=== PATIENT | female | born 1995 | race Caucasian/White ===

== ENCOUNTER → 2018-03-21 | Outpatient (CLI) | payer OTHER ==
[~2018-03-21] MED LIST: ACET500 PO; ACYC800 PO; ALBU90OI; ALBU90OI INH; AMOCLA500 PO; AMOCLA875 PO; BENZ100A PO; BUSP10 PO; Bactrim 400-801 EACH PO; CEPH500 PO; CETI10 PO; CLON.1 PO; CODACE30 PO; CODACEE120 PO; CODGUAEL PO; CRUTCH USE; DIPH12.5EL; DIPH50; DOXY100 PO; ESCI10 PO; ESCI5 PO; HYDACE5; HYDACE5 PO; HYDPAM50 PO; IBUP200; IBUP600 PO; KETO10 PO; Keflex500 MG PO; LOPE2C PO; LORA.5 PO; LORA1 PO; Lice Cream Rin120 ML TP; METERG.2 PO; METO10 PO; MULVITMINE PO; MUPI2TO TOP; Macrobid 100 M100 MG PO; Motrin600 MG PO; NAPR500 PO; NAPR500ERA PO; NAPR550 PO; NEOPOLHCSU AD; NICO2 PO; Naprosyn500 MG PO; OXYACE7.5T PO; PENVK500; PENVK500 PO; PHENA200 PO; PRED10 PO; PRED20 PO; PREN-16 PO; PROC10 PO; PROG100 PO; PROM25 PO; Permethrin60 GM TP; Pyridium100 MG PO; RXCODACET PO; RXCODGUASY PO; RXHYDACE PO; RXLORA1 PO; RXNAPNA550 PO; SULTRIDS PO; TRAM50 PO; TRAZ50 PO; Zofran Odt4 MG SL; Zofran8 MG PO; [UNRECOGNIZED DRUG - REMARK]
== END | disposition home or self-care (01) ==
LOC: LAB SHORT 11:43 → LAB 11:43
DX: Z34.80 Encounter for supervision of other normal pregnancy, unspecified trimester (principal)
CPT/HCPCS: 87081; 87653

== ENCOUNTER 2018-04-15 03:52 | Inpatient (IN) | payer OTHER ==
[~2018-04-15] VITALS: Ht 170.2 cm; Wt 96.0 kg
[2018-04-15] MEDS ORDERED: Verotin-Gr Cap1 EACH PO (08:13)
[2018-04-15 08:58] LABS: BASOPHILS ABSOLUTE AUTO 0.03 K/mm3 (0.00-0.23); BASOPHILS PERCENT AUTO 0 % (0-2); EOSINOPHILS ABSOLUTE AUTO 0.13 K/mm3 (0.00-0.68); EOSINOPHILS PERCENT AUTO 1 % (0-6); Hematocrit 34.1 % (33.0-51.0); Hemoglobin 11.7 g/dL (11.5-16.0); IMMATURE GRAN ABSOLUTE AUTO 0.07 K/mm3 (0.00-0.10); IMMATURE GRAN PERCENT AUTO 1 % (0-1); LYMPHOCYTES ABSOLUTE AUTO 2.82 K/mm3 (0.84-5.20); LYMPHOCYTES PERCENT AUTO 23 % (21-46); MONOCYTES ABSOLUTE AUTO 0.85 K/mm3 (0.16-1.47); MONOCYTES PERCENT AUTO 7 % (4-13); Mean Corpuscular HGB 28.5 pg (26.0-34.0); Mean Corpuscular HGB Conc 34.3 g/dL (31.5-36.5); Mean Corpuscular Volume 83 fL (80-100); Mean Platelet Volume 10.8 fL (9.1-12.4); NEUTROPHILS PERCENT AUTO 69 % (41-73); Platelet Count 231 K/mm3 (150-400); RDW Coefficient Variation 13.4 % (11.7-14.2); RDW Standard Deviation 40.7 fL (35.1-46.3); Red Blood Cell Count 4.11 M/mm3 (3.80-5.20)
[2018-04-15 09:39] LABS: U Amphetamine Screen Not Detected; U Barbituate Screen Not Detected; U Benzodiazapine Screen Not Detected; U Buprenorphine Screen Not Detected; U Cannabinoids Screen DETECTED; U Cocaine Screen Not Detected; U Methadone Screen Not Detected; U Methamphetamine Screen Not Detected; U Opiates Screen Not Detected; U Oxycodone Screen Not Detected; U Phencyclidine Screen Not Detected; U Propoxyphene Screen Not Detected
[2018-04-16 05:49] LABS: Hematocrit 30.7 % (33.0-51.0); Hemoglobin 10.7 g/dL (11.5-16.0); Mean Corpuscular HGB 28.8 pg (26.0-34.0); Mean Corpuscular HGB Conc 34.9 g/dL (31.5-36.5); Mean Corpuscular Volume 83 fL (80-100); Mean Platelet Volume 10.9 fL (9.1-12.4); Platelet Count 206 K/mm3 (150-400); RDW Coefficient Variation 13.2 % (11.7-14.2); RDW Standard Deviation 39.8 fL (35.1-46.3); Red Blood Cell Count 3.72 M/mm3 (3.80-5.20); White Blood Cell Count 16.52 K/mm3 (4.00-11.30)
[2018-04-17] MEDS ORDERED: IBUP800 (10:46)
== END 2018-04-17 15:15 | disposition home or self-care (01) | DRG 775 ==
LOC: BC 03:52
PROVIDERS: Obstetrics & Gynecology
PROC: 10E0XZZ Delivery of Products of Conception, External Approach (ICD-10-PCS; principal; 2018-04-15)
PROC: 3E0234Z Introduction of Serum, Toxoid and Vaccine into Muscle, Percutaneous Approach (ICD-10-PCS; 2018-04-15)
PROC: 3E0134Z Introduction of Serum, Toxoid and Vaccine into Subcutaneous Tissue, Percutaneous Approach (ICD-10-PCS; 2018-04-15)
PROC: 10907ZC Drainage of Amniotic Fluid, Therapeutic from Products of Conception, Via Natural or Artificial Opening (ICD-10-PCS; 2018-04-15)
PROC: 3E0S3BZ Introduction of Anesthetic Agent into Epidural Space, Percutaneous Approach (ICD-10-PCS; 2018-04-15)
DX: O99.824 Streptococcus B carrier state complicating childbirth (principal); Z37.0 Single live birth; Z3A.39 39 weeks gestation of pregnancy; Z23 Encounter for immunization; O71.82 Other specified trauma to perineum and vulva; O99.324 Drug use complicating childbirth; F12.90 Cannabis use, unspecified, uncomplicated
CPT/HCPCS: 36415; 51702; 85025; 85027; 87081; 90707; J0290; J1885; J2210; J2590; J3010; J7120

== ENCOUNTER → 2019-09-22 | Outpatient (CLI) | payer OTHER ==
[~2019-09-22] MED LIST changes: +DOCU100; +IBUP800; +IBUP800 PO; +Percocet 5-3251 EACH PO; +Verotin-Gr Cap1 EACH PO
[2019-09-25 23:06] LABS: CHLAMYDIA BY NAA Negative (Negative); GONOCOCCUS BY NAA Negative (Negative); TRICH VAG BY NAA Positive (Negative)
== END | disposition home or self-care (01) ==
LOC: LAB 15:00 → LAB SHORT 15:00
PROVIDERS: Advanced Practice Midwife
DX: Z33.1 Pregnant state, incidental (principal)
CPT/HCPCS: 87081; 87491; 87591; 87653; 87661

== ENCOUNTER 2019-10-14 05:05 | Inpatient (IN) | payer OTHER ==
[~2019-10-14] VITALS: Ht 170.2 cm; Wt 96.8 kg
[~2019-10-14 05:05] MED LIST changes: -DOCU100; -IBUP800 PO; -Percocet 5-3251 EACH PO
[2019-10-14 05:41] LABS: BASOPHILS ABSOLUTE AUTO 0.03 K/mm3 (0.00-0.23); BASOPHILS PERCENT AUTO 0 % (0-2); EOSINOPHILS ABSOLUTE AUTO 0.15 K/mm3 (0.00-0.68); EOSINOPHILS PERCENT AUTO 1 % (0-6); Hematocrit 34.8 % (33.0-51.0); Hemoglobin 11.9 g/dL (11.5-16.0); IMMATURE GRAN ABSOLUTE AUTO 0.16 K/mm3 (0.00-0.10); IMMATURE GRAN PERCENT AUTO 1 % (0-1); LYMPHOCYTES ABSOLUTE AUTO 2.68 K/mm3 (0.84-5.20); LYMPHOCYTES PERCENT AUTO 21 % (21-46); MONOCYTES ABSOLUTE AUTO 0.77 K/mm3 (0.16-1.47); MONOCYTES PERCENT AUTO 6 % (4-13); Mean Corpuscular HGB 28.1 pg (26.0-34.0); Mean Corpuscular HGB Conc 34.2 g/dL (31.5-36.5); Mean Corpuscular Volume 82 fL (80-100); Mean Platelet Volume 10.8 fL (9.1-12.4); NEUTROPHILS ABSOLUTE AUTO 8.84 K/mm3 (1.96-9.15); NEUTROPHILS PERCENT AUTO 70 % (41-73); Platelet Count 188 K/mm3 (150-400); RDW Coefficient Variation 13.4 % (11.7-14.2); RDW Standard Deviation 39.6 fL (35.1-46.3); Red Blood Cell Count 4.24 M/mm3 (3.80-5.20); White Blood Cell Count 12.63 K/mm3 (4.00-11.30)
[2019-10-14 06:11] LABS: U Amphetamine Screen Not Detected; U Barbituate Screen Not Detected; U Benzodiazapine Screen Not Detected; U Buprenorphine Screen Not Detected; U Cannabinoids Screen DETECTED; U Cocaine Screen Not Detected; U Methadone Screen Not Detected; U Methamphetamine Screen Not Detected; U Opiates Screen Not Detected; U Oxycodone Screen Not Detected; U Phencyclidine Screen Not Detected; U Propoxyphene Screen Not Detected
--- NOTE | 2019-10-14 22:11 | NUR ---
PROVIDED PATIENT WITH HEATED PAD TO HELP WITH CRAMPING
--- NOTE | 2019-10-15 01:15 | NUR ---
PATIENT IN ROOM CRYING AT THIS TIME. STATES THAT HER MOTHER STOLE GU AND FOOD STAMP CARD FROM HER WALLET WHILE VISITING HER ROOM. OFFERED PATIENT TO SET UP A PASSWORD, PATIENT DECLINED STATING THAT HER MOM WILL NOT BE RETURNING BECAUSE SHE CALLED THE BILL COLLECTOR ON HER.
[2019-10-15 06:11] LABS: Hemoglobin 10.2 g/dL (11.5-16.0); Mean Corpuscular HGB 27.9 pg (26.0-34.0); Mean Corpuscular Volume 82 fL (80-100); Mean Platelet Volume 10.8 fL (9.1-12.4); Platelet Count 174 K/mm3 (150-400); RDW Coefficient Variation 13.3 % (11.7-14.2); RDW Standard Deviation 39.8 fL (35.1-46.3); Red Blood Cell Count 3.65 M/mm3 (3.80-5.20); White Blood Cell Count 13.42 K/mm3 (4.00-11.30)
--- NOTE | 2019-10-15 12:33 | NUR ---
ASSIST BABY WELL SHE DENIES FEEDING PROBLEMS AT THIS TIME. MOM IS AN EXPERIENCED MOM. SHE DID HAV QUESTIONS AND CONCERNS ABOUT PUMPING AND REPROTED THAT SHE WAS UNSUCCESSFUL WITH PUMPING LAST. TIME. HAND OHT FREEMAN ON EDUCATION RESOURCES AND HANDS ON PUMPING WEB SITE.
[2019-10-15] MEDS ORDERED: IBUP800 PO (15:00)
[2019-10-15] MEDS ORDERED: Percocet 5-3251 EACH PO (15:01)
[2019-10-15] MEDS ORDERED: DOCU100 (15:01)
--- NOTE | 2019-10-15 16:38 | NUR ---
DISCHARGE INSRUCTIONS REVIEWED AND SIGNED. ALL QUESTIONS ANSWERED. BANDS MATCHED
== END 2019-10-15 16:40 | disposition home or self-care (01) | DRG 807 ==
LOC: BC 05:05
PROVIDERS: Obstetrics & Gynecology; ADMIT Advanced Practice Midwife
PROC: 10E0XZZ Delivery of Products of Conception, External Approach (ICD-10-PCS; principal; 2019-10-14)
PROC: 3E033VJ Introduction of Other Hormone into Peripheral Vein, Percutaneous Approach (ICD-10-PCS; 2019-10-14)
PROC: 10907ZC Drainage of Amniotic Fluid, Therapeutic from Products of Conception, Via Natural or Artificial Opening (ICD-10-PCS; 2019-10-14)
PROC: 3E0R3BZ Introduction of Anesthetic Agent into Spinal Canal, Percutaneous Approach (ICD-10-PCS; 2019-10-14)
DX: O99.824 Streptococcus B carrier state complicating childbirth (principal); Z37.0 Single live birth; O99.334 Smoking (tobacco) complicating childbirth; F17.200 Nicotine dependence, unspecified, uncomplicated; Z3A.39 39 weeks gestation of pregnancy; Z91.013 Allergy to seafood
CPT/HCPCS: 36415; 51702; 85025; 85027; A9270; J0290; J1885; J2001; J2210; J2590; J3010; J7120

== ENCOUNTER 2021-10-01 08:37 | Emergency (ER) | payer OTHER ==
[~2021-10-01] VITALS: Ht 170.2 cm; Wt 0.5 kg
[~2021-10-01 08:37] MED LIST changes: +DOCU100; +IBUP800 PO; +ONE A DAY PREN1 EACH PO; +Percocet 5-3251 EACH PO
== END 2021-10-01 09:19 | disposition home or self-care (01) ==
LOC: ER 08:37
DX: O20.9 Hemorrhage in early pregnancy, unspecified (principal); Z3A.17 17 weeks gestation of pregnancy; Z53.21 Procedure and treatment not carried out due to patient leaving prior to being seen by health care provider
CPT/HCPCS: 99283

== ENCOUNTER 2021-10-02 01:34 | Emergency (ER) | payer OTHER ==
[~2021-10-02] VITALS: Ht 170.2 cm; Wt 81.7 kg
[2021-10-02 02:26] LABS: BASOPHILS ABSOLUTE AUTO 0.04 K/mm3 (0.00-0.23); BASOPHILS PERCENT AUTO 1 % (0-2); EOSINOPHILS PERCENT AUTO 1 % (0-6); Hematocrit 36.1 % (33.0-51.0); Hemoglobin 12.2 g/dL (11.5-16.0); IMMATURE GRAN ABSOLUTE AUTO 0.02 K/mm3 (0.00-0.10); IMMATURE GRAN PERCENT AUTO 0 % (0-1); LYMPHOCYTES ABSOLUTE AUTO 2.28 K/mm3 (0.84-5.20); LYMPHOCYTES PERCENT AUTO 29 % (21-46); MONOCYTES ABSOLUTE AUTO 0.51 K/mm3 (0.16-1.47); MONOCYTES PERCENT AUTO 7 % (4-13); Mean Corpuscular HGB 27.8 pg (26.0-34.0); Mean Corpuscular HGB Conc 33.8 g/dL (31.5-36.5); Mean Corpuscular Volume 82 fL (80-100); NEUTROPHILS ABSOLUTE AUTO 4.95 K/mm3 (1.96-9.15); NEUTROPHILS PERCENT AUTO 63 % (41-73); RDW Coefficient Variation 13.2 % (11.7-14.2); RDW Standard Deviation 39.4 fL (35.1-46.3); Red Blood Cell Count 4.39 M/mm3 (3.80-5.20)
[2021-10-02 02:29] LABS: Mean Platelet Volume 10.3 fL (9.1-12.4); Platelet Count 265 K/mm3 (150-400)
[2021-10-02 03:27] LABS: Alanine Aminotransfer (ALT/SGP 24 U/L (12-78); Albumin, Blood 3.5 g/dL (3.4-5.0); Alk Phos 38 U/L (50-136); Anion Gap 8 mmol/L (6-16); Aspartate Aminotrans (AST/SGOT 39 U/L (12-37); Bilirubin, Total 0.4 mg/dL (0.1-1.0); Blood Urea Nitrogen 9 mg/dL (8-24); Bun/Creatinine Ratio 16.5 (12.0-20.0); CO2, Blood 23 mmol/L (21-32); Chloride, Blood 108 mmol/L (98-108); Creatinine, Blood 0.55 mg/dL (0.40-1.00); Globulin, Blood 3.4 g/dL (2.2-4.0); Glomerular Filtration Rate >60 (60-); Glucose, Blood 86 mg/dL (70-99); Potassium, Blood 4.4 mmol/L (3.5-5.5); Sodium, Blood 139 mmol/L (136-145); Total Protein, Blood 6.9 g/dL (6.4-8.2)
[2021-10-02 03:45] LABS: Beta HCG, Quantitative, Serum 6628 mIU/mL (0-3)
== END 2021-10-02 05:52 | disposition home or self-care (01) ==
LOC: ER 01:34
PROVIDERS: Student in an Organized Health Care Education/Training Program
DX: O03.4 Incomplete spontaneous abortion without complication (principal); Z91.013 Allergy to seafood; Z87.891 Personal history of nicotine dependence; Z3A.17 17 weeks gestation of pregnancy
CPT/HCPCS: 36415; 76815; 80053; 84702; 85025; 86900; 86901; 99284-25

== ENCOUNTER 2021-10-06 14:22 | Observation (INO) | payer OTHER ==
[~2021-10-06] VITALS: Ht 170.2 cm; Wt 88.0 kg
[2021-10-06 15:03] LABS: BASOPHILS ABSOLUTE AUTO 0.04 K/mm3 (0.00-0.23); BASOPHILS PERCENT AUTO 0 % (0-2); EOSINOPHILS ABSOLUTE AUTO 0.11 K/mm3 (0.00-0.68); EOSINOPHILS PERCENT AUTO 1 % (0-6); Hematocrit 36.1 % (33.0-51.0); Hemoglobin 12.2 g/dL (11.5-16.0); IMMATURE GRAN ABSOLUTE AUTO 0.06 K/mm3 (0.00-0.10); IMMATURE GRAN PERCENT AUTO 1 % (0-1); LYMPHOCYTES ABSOLUTE AUTO 1.86 K/mm3 (0.84-5.20); LYMPHOCYTES PERCENT AUTO 19 % (21-46); MONOCYTES ABSOLUTE AUTO 0.47 K/mm3 (0.16-1.47); MONOCYTES PERCENT AUTO 5 % (4-13); Mean Corpuscular HGB 27.9 pg (26.0-34.0); Mean Corpuscular HGB Conc 33.8 g/dL (31.5-36.5); Mean Corpuscular Volume 82 fL (80-100); NEUTROPHILS ABSOLUTE AUTO 7.32 K/mm3 (1.96-9.15); NEUTROPHILS PERCENT AUTO 74 % (41-73); Platelet Count 340 K/mm3 (150-400); RDW Standard Deviation 39.3 fL (35.1-46.3); Red Blood Cell Count 4.38 M/mm3 (3.80-5.20); White Blood Cell Count 9.86 K/mm3 (4.00-11.30)
[2021-10-06 15:39] LABS: Alanine Aminotransfer (ALT/SGP 22 U/L (12-78); Albumin, Blood 3.2 g/dL (3.4-5.0); Albumin/Globulin Ratio 0.9 (0.8-1.8); Alk Phos 43 U/L (50-136); Anion Gap 7 mmol/L (6-16); Aspartate Aminotrans (AST/SGOT 16 U/L (12-37); Bilirubin, Total 0.3 mg/dL (0.1-1.0); Blood Urea Nitrogen 9 mg/dL (8-24); Bun/Creatinine Ratio 15.1 (12.0-20.0); CO2, Blood 25 mmol/L (21-32); Calcium, Blood 8.9 mg/dL (8.5-10.1); Chloride, Blood 108 mmol/L (98-108); Globulin, Blood 3.6 g/dL (2.2-4.0); Glomerular Filtration Rate >60 (60-); Glucose, Blood 117 mg/dL (70-99); Potassium, Blood 3.9 mmol/L (3.5-5.5); Sodium, Blood 140 mmol/L (136-145); Total Protein, Blood 6.8 g/dL (6.4-8.2)
[2021-10-06 15:40] LABS: Beta HCG, Quantitative, Serum 4220 mIU/mL (0-3)
[2021-10-06] MEDS ORDERED: ACET500 PO (17:36)
[2021-10-06 19:49] LABS: Influenza A, PCR NEGATIVE (NEGATIVE); Influenza B, PCR NEGATIVE (NEGATIVE); Resp Syncytial Virus, PCR NEGATIVE (NEGATIVE); SARS-Cov-2 (COVID-19) PCR, MMC NEGATIVE (NEGATIVE)
--- NOTE | 2021-10-06 21:30 | NUR ---
ARRIVAL/ AMA DISCHARGE NOTE PT ARRIVED TO 221 FROM THE ED. PT A/0X4, VSS. BELONGINGS AT BEDSIDE. 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 PT REQUESTED TO LEAVE AMA. RISKS AND BENEFITS EXPLAINED TO PATIENT AT THIS TIME. AMA SIGNED BY PATIENT, RN AND RETAIL RECEIVING CLERK Elliot BRADLEY. IV REMOVED AND PATIENT LEFT UNIT AT THIS TIME.
--- NOTE | 2021-10-06 21:40 | NUR ---
DR. DE MADE AWARE OF PATIENT LEAVING AMA AT THIS TIME.
== END 2021-10-06 21:35 | disposition left against medical advice (07) ==
LOC: ER 14:22 → SURS 14:23
PROVIDERS: Emergency Medicine; ADMIT Obstetrics & Gynecology
DX: O03.6 Delayed or excessive hemorrhage following complete or unspecified spontaneous abortion (principal); O99.331 Smoking (tobacco) complicating pregnancy, first trimester; Z3A.10 10 weeks gestation of pregnancy; Z91.013 Allergy to seafood; Z79.899 Other long term (current) drug therapy; Z87.891 Personal history of nicotine dependence; Z20.822 Contact with and (suspected) exposure to COVID-19
CPT/HCPCS: 0241U; 36415; 76815; 80053; 84702; 85025; 86850; 86900; 86901; 96374; 96375; 96376; 99285-25; A9270; J2270; J2405; J7030

== ENCOUNTER 2022-11-10 15:30 | Inpatient (IN) | payer OTHER ==
[~2022-11-10] VITALS: Ht 170.2 cm; Wt 90.5 kg
[2022-11-10 15:57] LABS: BASOPHILS ABSOLUTE AUTO 0.05 K/mm3 (0.00-0.23); BASOPHILS PERCENT AUTO 1 % (0-2); EOSINOPHILS ABSOLUTE AUTO 0.07 K/mm3 (0.00-0.68); EOSINOPHILS PERCENT AUTO 1 % (0-6); Hematocrit 37.6 % (33.0-51.0); Hemoglobin 13.1 g/dL (11.5-16.0); IMMATURE GRAN ABSOLUTE AUTO 0.03 K/mm3 (0.00-0.10); IMMATURE GRAN PERCENT AUTO 0 % (0-1); LYMPHOCYTES ABSOLUTE AUTO 3.06 K/mm3 (0.84-5.20); LYMPHOCYTES PERCENT AUTO 30 % (21-46); MONOCYTES ABSOLUTE AUTO 0.66 K/mm3 (0.16-1.47); MONOCYTES PERCENT AUTO 6 % (4-13); Mean Corpuscular HGB 27.5 pg (26.0-34.0); Mean Corpuscular HGB Conc 34.8 g/dL (31.5-36.5); Mean Corpuscular Volume 79 fL (80-100); Mean Platelet Volume 10.1 fL (9.1-12.4); NEUTROPHILS ABSOLUTE AUTO 6.43 K/mm3 (1.96-9.15); NEUTROPHILS PERCENT AUTO 62 % (41-73); Platelet Count 315 K/mm3 (150-400); RDW Coefficient Variation 13.3 % (11.7-14.2); RDW Standard Deviation 38.1 fL (35.1-46.3); Red Blood Cell Count 4.76 M/mm3 (3.80-5.20)
[2022-11-10 16:16] LABS: Source, Urine Foley catheter
[2022-11-10 16:22] LABS: Base Excess Venous 0.6 mmol/L; Bicarbonate Venous 24.3 mmol/L (24.0-30.0); pH Blood Venous 7.37 (7.34-7.37)
[2022-11-10 16:42] LABS: Albumin, Blood 3.6 g/dL (3.4-5.0); Albumin/Globulin Ratio 1.1 (0.8-1.8); Bilirubin, Total 0.3 mg/dL (0.1-1.0); Bun/Creatinine Ratio 13.1 (12.0-20.0); Calcium, Blood 8.8 mg/dL (8.5-10.1); Creatinine, Blood 0.69 mg/dL (0.40-1.00); Globulin, Blood 3.2 g/dL (2.2-4.0); Potassium, Blood 3.4 mmol/L (3.5-5.5); Total Protein, Blood 6.8 g/dL (6.4-8.2)
[2022-11-10 17:15] LABS: Appearance, Urine Clear (Clear); Bilirubin, Urine Neg (Neg); Blood, Urine Neg (Neg); Color, Urine Yellow (P-Yellow); Glucose Qualitative, Urine Neg (Neg); Ketones, Urine Neg (Neg); Leukocyte Esterase, Urine Neg (Neg); Nitrite, Urine Neg (Neg); Protein, Urine 2+ (Neg); Specific Gravity, Urine 1.025 (1.003-1.022); Urobilinogen, Urine NORM (Normal)
[2022-11-10 17:24] LABS: Bacteria Few /hpf; Calcium Oxalate Crystals Rare /hpf; Mucus Light (0-Heavy); Squamous Epithelial Cells Few /hpf (Few); Transitional Epithelial Cells Rare /hpf (0-Rare); White Blood Cells, Urine 0-2 /hpf (0-5)
[2022-11-10 17:26] LABS: U Amphetamine Screen Not Detected; U Barbituate Screen Not Detected; U Benzodiazapine Screen Not Detected; U Buprenorphine Screen Not Detected; U Cannabinoids Screen DETECTED; U Cocaine Screen Not Detected; U Methadone Screen Not Detected; U Methamphetamine Screen DETECTED; U Opiates Screen Not Detected; U Oxycodone Screen Not Detected; U Phencyclidine Screen Not Detected; U Propoxyphene Screen Not Detected
--- NOTE | 2022-11-10 18:28 | NUR ---
ARRIVAL TO ICU PT ARRIVES TO ICU AT 1800 FOR INHALATION INJURY. REPORT FROM LARON AUGUST. PER REPORT, PT WAS SMOKING MARIJUANA WHEN A PROPANE BLOCK SPLITTER OPERATOR BLEW UP IN HER FACE. APPROX 1 HOUR BEFORE EMS WAS ON SCENE. PT REPORTED THROAT TIGHTNESS AND WAS INTUBATED. PT ARRIVES INTUBATED AND SEDATED. 7.0 ETT, 24 AT TEETH. VENT SETTINGS AC/VC 16/450/5/40%. ON ARRIVAL, PT THRASHING IN BED, PULLING AT RESTRAINTS. PROPOFOL AND KETAMINE GTT INCREASED. PT RESTING CALMLY AT THIS TIME. LUNGS CLEAR. BALJEET RED BLOOD FROM ETT. EYEBROWS, LASHES AND FRONT OF SCALP HAIR BURNT. REDNESS NOTED TO CHIN, AND HANDS BILATERALLY, WORSE ON RIGHT HAND. SR, RATE 70'S. BP STABLE. OGT TO LIS. WILL CONTINUE TO MONITOR UNTIL REPORT TO ONCOMING NURSE.
--- NOTE | 2022-11-10 20:00 | NUR ---
ASSUMED CARE OF PT AT 1915. REPORT RECEIVED AT BEDSIDE. PT PRESENTS IN BED. INTUBATED. PT HAS POOR TOLERANCE OF VENT. KETAMINE AT 0.3 MG/KG PROPOFOL AT 40 MCG'S/KG. SPOKE WITH DR VILLAR ABOUT SAFE SEDATION WITH PT BEING . PRECEDEX AND KETAMINE PREFERABLE VERSUS PROPOFOL. WILL TITRATE PROPOFOL TO OFF. WILL USE PRECEDEX NEEDED TO PROVIDE VENT TOLERANCE. WILL REVIEW CHART AND PLAN OF CARE FOR THIS PT.
--- NOTE | 2022-11-11 00:30 | NUR ---
PT HAS BEEN QUITE ACTIVE THIS NIGHT EVEN WITH PRECEDEX AND KETAMINE INFUSING. PT HAS BEEN MEDICATED WITH PRN ATIVAN. PT MAKES EFFORTS TO TRY AND GET TO HER ETT TO PULL. IS NOT REDIRECTABLE. DOES RESPOND TO ATIVAN.
[2022-11-11 04:59] LABS: BASOPHILS ABSOLUTE AUTO 0.03 K/mm3 (0.00-0.23); BASOPHILS PERCENT AUTO 0 % (0-2); EOSINOPHILS ABSOLUTE AUTO 0.01 K/mm3 (0.00-0.68); EOSINOPHILS PERCENT AUTO 0 % (0-6); Hemoglobin 10.2 g/dL (11.5-16.0); IMMATURE GRAN ABSOLUTE AUTO 0.04 K/mm3 (0.00-0.10); IMMATURE GRAN PERCENT AUTO 0 % (0-1); LYMPHOCYTES ABSOLUTE AUTO 1.84 K/mm3 (0.84-5.20); LYMPHOCYTES PERCENT AUTO 14 % (21-46); MONOCYTES ABSOLUTE AUTO 0.74 K/mm3 (0.16-1.47); MONOCYTES PERCENT AUTO 6 % (4-13); Mean Corpuscular HGB Conc 35.2 g/dL (31.5-36.5); Mean Corpuscular Volume 80 fL (80-100); Mean Platelet Volume 10.3 fL (9.1-12.4); NEUTROPHILS ABSOLUTE AUTO 10.09 K/mm3 (1.96-9.15); NEUTROPHILS PERCENT AUTO 79 % (41-73); Platelet Count 250 K/mm3 (150-400); RDW Coefficient Variation 13.6 % (11.7-14.2); RDW Standard Deviation 39.3 fL (35.1-46.3); Red Blood Cell Count 3.64 M/mm3 (3.80-5.20); White Blood Cell Count 12.75 K/mm3 (4.00-11.30)
--- NOTE | 2022-11-11 05:16 | NUR ---
PT AWAKENS EASILY EVEN WITH KETAMINE 0.5 MG. AND PRECEDEX AT 0.7 MCG'S. OF NOTE: PT WAS ABLE TO GET HER HAND OUT OF WRIST RESTRAINT ON LEFT WHILE THIS RN WAS AT THE DOOR. IMMEDIATELY SHE WENT TO GRAB AT HER ETT. WAS ABLE TO GET TO PT BEFORE SHE SELF EXTUBATED HERSELF. HAVE MEDICATED PT WITH 2 MG ATIVAN. PT CURRENTLY SLEEPING.
[2022-11-11 05:28] LABS: Bun/Creatinine Ratio 11.6 (12.0-20.0); Calcium, Blood 7.6 mg/dL (8.5-10.1); Creatinine, Blood 0.6 mg/dL (0.40-1.00)
--- NOTE | 2022-11-11 08:22 | NUR ---
CALL FOR WELLNESS CHECK: PT HAS NOT HAD ANYBODY CHECK ON HER SINCE ARRIVAL TO THE HOSPITAL, CALLS TO "FRIEND" LISTED ON FACESHEET GO STRAIGHT TO VOICEMAIL WITH NO RETURN CALL. LOOK THROUGH PRIOR RECORDS WITH NO OTHER CONTACTS ABLE TO BE IDENTIFIED. PT KNOWN TO HAVE CHILDREN, UNCLEAR OF THEIR WHEREABOUTS, THUS CALL TO [facility] TO HAVE SOMEONE CHECK ON PT'S LAST KNOWN ADDRESS/ATTEMPT TO LOCATE FAMILY/CHILDREN FOR THIS PT. THEY STATE AN OFFICER WILL ATTEMPT TO CONTACT AT LAST KNOWN ADDRESS AND WILL CALL BACK WITH STATUS UPDATE.
--- NOTE | 2022-11-11 08:30 | NUR ---
ASSUMED CARE REPORT FROM TRAE AUGUST AT 0700. PT INTUBATED AND SEDATED. VENT SETTINGS SPONT 7/5/30%. TV 400-500MLS. LUNGS CLEAR. SMALL AMOUNT OF THIN CLEAR SECRETIONS FROM ETT. KETAMINE AND PRECEDEX GTT INFUSING FOR SEDATION. PT EITHER VERY SEDATED OR VERY AGITATED. SITTING UP IN BED, PULLING ON RESTRAINTS. UNABLE TO REDIRECT. MAEW. DOES NOT FOLLOW COMMANDS. COUGH/GAG/SWALLOW REFLEX PRESENT. PRN ATIVAN GIVEN. SR, RATE 60-70'S. BP STABLE. KCL BEING REPLACED. ABD ROUND, SOFT, NON TENDER. BT X 4. OGT TO LISLivia SHARPEEY PATENT, DRAINING CLOUDY ALEX URINE TO GRAVITY. PIV X 2. WILL CONTINUE TO MONITOR.
--- NOTE | 2022-11-11 10:35 | NUR ---
WELFARE UPDATE: RECEIVED CALL BACK FROM PLACEMENT SECRETARY YUE WHO WAS ABLE TO MAKE CONTACT WITH PT'S MOTHER, BELIEVES HER NAME IS MIKEY. PT'S MOTHER STATES SHE HAS 1 OF PT'S CHILDREN LIVING WITH HER AND THAT THE OTHER 4 CHILDREN HAD BEEN ADOPTED. OBTAINED CONTACT PHONE NUMBER [phone] FOR MOTHER.
--- NOTE | 2022-11-11 11:00 | NUR ---
Pt resting in bed and is intubated. No S/S of distress at this time. Spoke with farm machinery mechanic Chela, Primary RN Kym, and discussed case. Potential need for assistance with locating NOK. Chela has call out to [facility] with assistance for locating family. Reviewed plan of care. Attempted to call friend Benjamin listed as contact. Left message on CME with request for return phone call. Called phone number that is listed for Pt and is disconnected or no longer in service. Palliative Care will remain available
--- NOTE | 2022-11-11 14:54 | NUR ---
BRONCHOSCOPY/EXTUBATION DR MELGOZA AND RT AT BEDSIDE FOR BRONCH. PROPOFOL AND SUCCINYLCHOLINE GIVEN. BRONCH COMPLETED. NO ABNOMALITIES NOTED. OK TO PROCEED c EXTUBATION PER DR MELGOZA. PRECEDEX AND KETAMINE PLACED ON STANDBY. PT ABLE TO FOLLOW SIMPLE COMMANDS. STRONG COUGH. EXTUBATED AT 1239. RESTRAINTS REMOVED. >97% ON RA. FAMILY AT BEDSIDE. WILL CONTINUE TO MONITOR.
--- NOTE | 2022-11-11 17:46 | NUR ---
SHIFT SUMMARY/TRANSFER TO MEDICAL FLOOR PT EXTUBATED THIS SHIFT, SEE PREVIOUS NOTE. LUNGS CLEAR, PT ON RA, O2 SATS >97%. PRODUCTIVE COUGH, ABLE TO MANAGE SECRETIONS. PASSED BEDSIDE SWALLOW, ADVANCED DIET TOLERATED. PT SOMULENT BUT WAKES c VERBAL STIMULI. OCCASIONALLY IRRITABLE c CARE. MOTHER ABLE TO REDIRECT. ANSWERS QUESTIONS APPROPRIATELY WHEN AWAKE. LIMITED RECOLLECTION OF EVENTS. DANYA REMOVED THIS SHIFT. UP TO SHOWER IN CHAIR. REPORT TO LESTER AUGUST. ALL BELONGINGS SENT c PT.
--- NOTE | 2022-11-11 18:35 | NUR ---
SHIFT SUMMARY- PT ALERT AND ORIENTED TO SELF, VERY FORGETFUL AND SEEMS TO BE GETTING MORE AGGITATED IT GETS LATER IN THE DAY. PT HAS Hx ETOH AND IS HAVING CIWAS DONE. SHE WAS MEDICATED PRIOR TO ARRIVAL ON MEDICAL FLOOR WITH PO LIBRIUM. PT CURRENTLY IN BED. SHE CALLS FREQUENTLY FOR NO APPARENT REASON, STAFF RESPOND AND SHE STATES SHE DOES NOT NEED ANYTHING, STAFF OFFER TO TAKE HER TO THE RESTROOM ANND SHE DECLINES, THEN WILL SET OFF THE BED ALARM WITHIN 2 MINUTES. PT HAS BECOME ANGRY WITH THE ALARM THIS EVENING, WHEN IT WAS EXPLAINED WHAT THE ALARM IS FOR SHE CALMED. PT IN BED, CALL LIGHT IN REACH ON TELE NSR IN THE 60'S ON ARRIVAL TO MED FLOOR THIS EVENING. NO CURRENT S&S OF DISTRESS OTED, WILL CTM AND PASS ON TO NIGHT RN IN REPORT.
--- NOTE | 2022-11-11 18:42 | NUR ---
SHIFT SUMMARY- PT ALERT TO SELF. VITALS COMPLETED WHEN PT WAS TRANSFERED FROM ICU TO MEDICAL FLOOR. PT TEMP ELEVATED 100.0. PER REPORT FROM CORPORATE TECHNICAL RECRUITER THE PT REFUSED OFFERED TYLENOL IN ICU. PT AGREED TO TAKE IT HERE, ONCE IT WAS PULLED THE PT WAS ASLEEP AND UNWILLING OR ABLE TO WAKE ENOUGH TO TAKE THE MEDICATION. PER REPORT FROM CORPORATE TECHNICAL RECRUITER THE PT ATE A REGULAR MEAL TRAY PRIOR TO ARRIVING ON MEDICAL FLOOR. PT CURRENTLY IN BED, CALL LIGHT IN REACH NO S&S OF DISTRESS. PT SLEEPING BED ALARM FOR SAFETY PT IS STILL VERY GROGGY. PT IS 5 WEEKS & 5 DAYS GESTATION. PLAN IS TO DC HOME WHEN MEDICALLY STABLE.
--- NOTE | 2022-11-12 02:49 | NUR ---
A/Ox4; LETHARGIC, SLOW TO RESPOND, AND COOPERATIVE. OOB MOBILITY NOT TESTED YET BY THIS RN; WITH A LOT OF CUES, PATIENT WAS ABLE TO TURN /LIFT HIPS IN BED. INC AND PLACED IN ATTENDS. C/O PAIN; PATIENT INITIALLY REFUSING TYLENOL. MOTHER OF PATIENT AT BEDSIDE - REQUESTED RN CALL DOCTOR, THIS RN PROMOTED TYLENOL, ADMINISTERED IT (WITH DIFFICULTY PATIENT WAS SO DROWSY THAT IT TOOK MULTIPLE ATTEMPTS), AND THEN CALLED THE DOCTOR (PRIOR TO MIDNIGHT) TO RELAY THE REQUEST FOR MORE PAIN MEDICATION. UPON RETURN TO PATIENT'S ROOM, PATIENT WAS ASLEEP AND THIS RN INFORMED FAMILY THAT NO NEW ORDERS WERE GIVEN AT THIS TIME. THIS RN THEN REACHED OUT TO THE PHARMACIST TO FIND OUT IF THERE IS A TOPICAL BURN CREAM AVAILABLE. PHARMACY CALLED BACK TO SAY THAT THEY HAD OBTAINED AN ORDER FOR FENTYNAL (4 DOSES) FROM THE SECOND NIGHT HOSPITALIST (AFTER MIDNIGHT). FENTYNAL NOT GIVEN YET D/T PATIENT LETHARGY AND NO NON-VERBAL S/S PAIN PRESENT. PATIENT HAS NOT VERBALIZED PAIN SINCE PRIOR TO ADMIN OF PRN TYLENOL AND APPEARS TO BE SLEEPING COMFORTABLY AT THIS TIME. THIS RN WILL CONTINUE TO REASSESS PATIENT'S PAIN AND NEUROLOGICAL STATUS THROUGHOUT SHIFT. FLUIDS ENCOURAGED. SLEEP PROMOTED. BED ALARM SET. CALL LIGHT IN REACH; ENCOURAGED TO MAKE NEEDS KNOWN.
--- NOTE | 2022-11-12 08:15 | NUR ---
CALLED DR COSTELLO- PT C/O PAIN IN THE AREA OF THE NELSON. ASKED ABOUT THE USE OF SILVADENE CREAM, HOWEVER THIS CAN NOT BE USED ON THE PT FACE (PER DR COSTELLO). RECIEVED ORDER FOR BACITRACIN TO APPLY TO THE AREA OF THE NELSON. PLAN IS TO DC THE PT HOME TODAY.
[2022-11-12] MEDS ORDERED: BACITO TOP (11:29)
--- NOTE | 2022-11-12 12:52 | NUR ---
DISCHARGE NOTE- PT WAS GIVEN VERBAL AND WRITTEN DISCHARGE INSTRUCTIONS AND ACKNOWLEDGED UNDERSTANDING OF THEM. BOTH IV'S WERE DC'D PRIOR TO DISCHAGRE, PT ATE LUNCH PRIOR TO LEAVING. PT WAS ESCORTED OUT VIA NO S&S OF DISTRESS AT THE TIME OF DISCHARGE.
== END 2022-11-12 12:13 | disposition home or self-care (01) | DRG 831 ==
LOC: ER 15:30 → ICUW 17:51 → ICUE 17:51 → MEDS 11-11 18:06
PROVIDERS: Emergency Medicine; ADMIT Surgery
PROC: 0BJ08ZZ Inspection of Tracheobronchial Tree, Via Natural or Artificial Opening Endoscopic (ICD-10-PCS; principal; 2022-11-11)
PROC: 5A1935Z Respiratory Ventilation, Less than 24 Consecutive Hours (ICD-10-PCS; 2022-11-11)
DX: O9A.211 Injury, poisoning and certain other consequences of external causes complicating pregnancy, first trimester (principal); J96.01 Acute respiratory failure with hypoxia; T31.11 Burns involving 10-19% of body surface with 10-19% third degree burns; T20.23XA Burn of second degree of chin, initial encounter; Z78.1 Physical restraint status; T23.101A Burn of first degree of right hand, unspecified site, initial encounter; T23.102A Burn of first degree of left hand, unspecified site, initial encounter; F41.9 Anxiety disorder, unspecified; Z3A.01 Less than 8 weeks gestation of pregnancy; Z91.013 Allergy to seafood; Z90.49 Acquired absence of other specified parts of digestive tract; Z98.890 Other specified postprocedural states; Z87.891 Personal history of nicotine dependence; X14.0XXA Inhalation of hot air and gases, initial encounter
CPT/HCPCS: 51702; 71045; 76801; 80048; 80053; 81001; 82803; 84702; 85025; 87070; 87077; 87147; 87185; 87205; 94002; 94003; 94760; 96361-59; 96372; 96374-59; 96375; 96376; 96376-59; 99291-25; A9270; C9113; G0378; G0390; J0330; J1650; J2060; J2704; J3010; J3480; J7030; J7040; J7050

== ENCOUNTER 2023-07-03 21:01 | Inpatient (IN) | payer OTHER ==
[~2023-07-03] VITALS: Ht 167.6 cm; Wt 89.4 kg
[~2023-07-03 21:01] MED LIST changes: +BACITO TOP
[2023-07-03 21:05] VITALS: BP 139/85
[2023-07-03] MEDS ORDERED: BUPRENORPHINE HC2 MG SL (22:42)
[2023-07-03 23:36] VITALS: BP 120/68
[2023-07-03 23:44] LABS: BASOPHILS ABSOLUTE AUTO 0.03 K/mm3 (0.00-0.23); BASOPHILS PERCENT AUTO 0 % (0-2); EOSINOPHILS ABSOLUTE AUTO 0.03 K/mm3 (0.00-0.68); EOSINOPHILS PERCENT AUTO 0 % (0-6); Hematocrit 31.5 % (33.0-51.0); Hemoglobin 10.5 g/dL (11.5-16.0); IMMATURE GRAN ABSOLUTE AUTO 0.04 K/mm3 (0.00-0.10); IMMATURE GRAN PERCENT AUTO 1 % (0-1); LYMPHOCYTES ABSOLUTE AUTO 2.17 K/mm3 (0.84-5.20); LYMPHOCYTES PERCENT AUTO 25 % (21-46); MONOCYTES ABSOLUTE AUTO 0.49 K/mm3 (0.16-1.47); MONOCYTES PERCENT AUTO 6 % (4-13); Mean Corpuscular HGB 25.1 pg (26.0-34.0); Mean Corpuscular HGB Conc 33.3 g/dL (31.5-36.5); Mean Corpuscular Volume 75 fL (80-100); Mean Platelet Volume 11.2 fL (9.1-12.4); NEUTROPHILS ABSOLUTE AUTO 5.81 K/mm3 (1.96-9.15); NEUTROPHILS PERCENT AUTO 68 % (41-73); Platelet Count 208 K/mm3 (150-400); RDW Coefficient Variation 14.2 % (11.7-14.2); RDW Standard Deviation 37.5 fL (35.1-46.3); Red Blood Cell Count 4.18 M/mm3 (3.80-5.20); White Blood Cell Count 8.57 K/mm3 (4.00-11.30)
[2023-07-03 23:59] LABS: International Normalized Ratio 0.94; Prothrombin Time Results 9.9 Sec (9.7-11.5)
[2023-07-04] VITALS (44 sets, daily range): BP systolic 107–166; BP diastolic 57–101
[2023-07-04 00:07] LABS: Albumin, Blood 2.3 g/dL (3.4-5.0); Albumin/Globulin Ratio 0.7 (0.8-1.8); Bilirubin, Total 0.3 mg/dL (0.1-1.0); Bun/Creatinine Ratio 7.3 (12.0-20.0); Calcium, Blood 8.4 mg/dL (8.5-10.1); Creatinine, Blood 0.55 mg/dL (0.40-1.00); Globulin, Blood 3.4 g/dL (2.2-4.0); Potassium, Blood 3.4 mmol/L (3.5-5.5); Total Protein, Blood 5.7 g/dL (6.4-8.2)
[2023-07-04 01:21] LABS: Source, Urine Clean Catch
[2023-07-04 01:26] LABS: Bilirubin, Urine Neg (Neg); Blood, Urine 3+ (Neg); Glucose Qualitative, Urine Neg (Neg); Ketones, Urine Neg (Neg); Leukocyte Esterase, Urine 1+ (Neg); Nitrite, Urine Neg (Neg); Protein, Urine Neg (Neg); Urobilinogen, Urine NORM (Normal)
[2023-07-04 01:42] LABS: U Amphetamine Screen Not Detected; U Barbituate Screen Not Detected; U Benzodiazapine Screen DETECTED; U Buprenorphine Screen Not Detected; U Cannabinoids Screen DETECTED; U Cocaine Screen Not Detected; U Methadone Screen Not Detected; U Methamphetamine Screen Not Detected; U Opiates Screen Not Detected; U Oxycodone Screen Not Detected; U Phencyclidine Screen Not Detected; U Propoxyphene Screen Not Detected
[2023-07-04 01:43] LABS: Appearance, Urine Clear (Clear); Color, Urine Pale Yellow (P-Yellow)
[2023-07-04 01:44] LABS: Bacteria Few /hpf; Red Blood Cells, Urine 0-2 /hpf (0-2); Squamous Epithelial Cells Mod /hpf (Few)
--- NOTE | 2023-07-04 07:45 | NUR ---
ASKING FOR DEANNA, CLEARED BY BALBINA SANZ, ALSO UPDATED OF PATIENT CARE, PITOCIN RESTARTED, PATIENT STATES SHE WANTS BALBINA HER PROVIDER
--- NOTE | 2023-07-04 15:30 | NUR ---
PATIENT STATES IN SEVER PAIN DOES NOT WANT ATIVAN, CNM UPDATED MAY HAVE PERCOCET X1 THEN RESTART BUPINORPHINE TONIGHT
--- NOTE | 2023-07-04 18:02 | NUR ---
1745 patient walked out the door stating she was looking for her friend 20 minutes later she has not returned,
--- NOTE | 2023-07-04 18:13 | NUR ---
STATES SHE WANTED THE BABY TO [place]
--- NOTE | 2023-07-04 18:31 | NUR ---
patient back in room confirms baby to go to [place] for cremation
--- NOTE | 2023-07-04 21:20 | NUR ---
PT EDUCATED ON RISKS INVOLVING TAKING A BATH POSTARTUM. PT STATES "I KNOW, THE OTHER NURSE TOLD ME ALREADY" PT STILL EDUCATED ON RISKS OF INFECTION. BATH IN BATHTUB NOW
[2023-07-05 02:04] VITALS: BP 157/71
[2023-07-05 06:00] VITALS: BP 130/74
[2023-07-05 06:15] LABS: BASOPHILS ABSOLUTE AUTO 0.06 K/mm3 (0.00-0.23); BASOPHILS PERCENT AUTO 0 % (0-2); EOSINOPHILS ABSOLUTE AUTO 0.07 K/mm3 (0.00-0.68); EOSINOPHILS PERCENT AUTO 1 % (0-6); Hematocrit 28.2 % (33.0-51.0); Hemoglobin 9.4 g/dL (11.5-16.0); IMMATURE GRAN ABSOLUTE AUTO 0.07 K/mm3 (0.00-0.10); IMMATURE GRAN PERCENT AUTO 1 % (0-1); LYMPHOCYTES ABSOLUTE AUTO 3.03 K/mm3 (0.84-5.20); LYMPHOCYTES PERCENT AUTO 22 % (21-46); MONOCYTES ABSOLUTE AUTO 0.87 K/mm3 (0.16-1.47); MONOCYTES PERCENT AUTO 6 % (4-13); Mean Corpuscular HGB 25.6 pg (26.0-34.0); Mean Corpuscular HGB Conc 33.3 g/dL (31.5-36.5); Mean Corpuscular Volume 77 fL (80-100); Mean Platelet Volume 11.1 fL (9.1-12.4); NEUTROPHILS ABSOLUTE AUTO 9.75 K/mm3 (1.96-9.15); NEUTROPHILS PERCENT AUTO 70 % (41-73); Platelet Count 215 K/mm3 (150-400); RDW Standard Deviation 38.7 fL (35.1-46.3); Red Blood Cell Count 3.67 M/mm3 (3.80-5.20); White Blood Cell Count 13.85 K/mm3 (4.00-11.30)
[2023-07-05 08:25] VITALS: BP 128/67
--- NOTE | 2023-07-05 09:58 | NUR ---
lavelle called they will pick baby up at 1300 today, patient refused follow-up here will follow-up in office patient offered spiritual care refused, bereavement folder and box given, molds not dry was instructed to come back and pick them up when dry
== END 2023-07-05 10:35 | disposition home or self-care (01) | DRG 806 ==
LOC: OBS 21:01 → BC 21:02 → OBS 21:57 → BC 21:59
PROVIDERS: Advanced Practice Midwife; ADMIT Family Medicine
PROC: 10E0XZZ Delivery of Products of Conception, External Approach (ICD-10-PCS; principal; 2023-07-04)
PROC: 3E0S3BZ Introduction of Anesthetic Agent into Epidural Space, Percutaneous Approach (ICD-10-PCS; 2023-07-04)
PROC: 00HU33Z Insertion of Infusion Device into Spinal Canal, Percutaneous Approach (ICD-10-PCS; 2023-07-04)
DX: O36.4XX0 Maternal care for intrauterine death, not applicable or unspecified (principal); O99.324 Drug use complicating childbirth; Z37.1 Single stillbirth; O99.334 Smoking (tobacco) complicating childbirth; F17.290 Nicotine dependence, other tobacco product, uncomplicated; Z3A.22 22 weeks gestation of pregnancy; F15.10 Other stimulant abuse, uncomplicated; F11.10 Opioid abuse, uncomplicated; O99.344 Other mental disorders complicating childbirth; F41.9 Anxiety disorder, unspecified; F12.10 Cannabis abuse, uncomplicated; O69.89X0 Labor and delivery complicated by other cord complications, not applicable or unspecified; O77.0 Labor and delivery complicated by meconium in amniotic fluid; Z3A.39 39 weeks gestation of pregnancy; Z90.49 Acquired absence of other specified parts of digestive tract; Z88.8 Allergy status to other drugs, medicaments and biological substances; Z91.013 Allergy to seafood; Z98.890 Other specified postprocedural states
CPT/HCPCS: 36415; 51702; 76815; 80053; 81001; 83605; 85025; 85384; 85610; 85730; 86850; 86900; 86901; 86923; 87086; A9270; J0290; J1580; J1885; J2060; J2210; J2590; J3010; J7120